=== PATIENT | male | born 1975 | race Native Hawaiian/Other Pacific Islander ===

== ENCOUNTER 2016-10-08 11:01 | Outpatient (CLI) | payer BC | END 2016-10-08 19:31 | disposition home or self-care (01) | LOC: RAD 11:01 | DX: M79.645 Pain in left finger(s) (principal) ==

== ENCOUNTER 2019-10-08 09:28 | Outpatient (CLI) | payer BC | END 2019-10-08 20:12 | disposition home or self-care (01) | LOC: RAD 09:28 | DX: M54.12 Radiculopathy, cervical region (principal) ==

== ENCOUNTER 2020-08-01 09:06 | Outpatient (CLI) | payer OTHER | END 2020-08-01 22:04 | disposition home or self-care (01) | LOC: LAB 09:06 | PROVIDERS: ATTEND Nurse Practitioner Family | DX: R50.9 Fever, unspecified (principal); R05 Cough; R06.02 Shortness of breath; R51.9 Headache, unspecified; Z11.59 Encounter for screening for other viral diseases | CPT/HCPCS: 87635; G2023; U0003 ==

== ENCOUNTER 2021-05-26 05:00 | Emergency (ER) | payer OTHER ==
[~2021-05-26] VITALS: Ht 172.7 cm; Wt 81.6 kg
[2021-05-26 06:09] LABS: POTASSIUM 3.9 mmol/L (3.6-5.2)
[2021-05-26 06:21] LABS: PLATELET COUNT 299 K/uL (142-355)
[2021-05-26 06:22] LABS: PARTIAL THROMBOPLASTIN TIME 23.3 SECONDS (24.5-33.6)
[2021-05-26 07:46] VITALS: BP 116/66; TEMP 98.4
== END 2021-05-26 07:48 | disposition home or self-care (01) ==
LOC: ED 05:00
PROVIDERS: Hospitalist
DX: J40 Bronchitis, not specified as acute or chronic (principal); F15.10 Other stimulant abuse, uncomplicated; F11.10 Opioid abuse, uncomplicated; F17.210 Nicotine dependence, cigarettes, uncomplicated
CPT/HCPCS: 36415; 80053; 80320; 82550; 83880; 84484; 85027; 85379; 85610; 85730; 93005; 96360; 96365; 96375; 99284; J0696; J3410

== ENCOUNTER 2021-06-02 01:41 | Emergency (ER) | payer OTHER ==
[~2021-06-02] VITALS: Ht 172.7 cm; Wt 81.6 kg
[2021-06-02 02:40] LABS: PLATELET COUNT 313 K/uL (142-355)
[2021-06-02 02:43] LABS: POTASSIUM 3.6 mmol/L (3.6-5.2)
[2021-06-02 04:20] VITALS: BP 138/82; TEMP 98.5
== END 2021-06-02 05:05 | disposition home or self-care (01) ==
LOC: ED 01:41
PROVIDERS: Emergency Medicine Emergency Medical Services
DX: I10 Essential (primary) hypertension (principal); J40 Bronchitis, not specified as acute or chronic; F19.10 Other psychoactive substance abuse, uncomplicated; F17.210 Nicotine dependence, cigarettes, uncomplicated
CPT/HCPCS: 36600; 80053; 80307; 80320; 81000; 82805; 83735; 84484; 85027; 85379; 93005; 96360; 96361; 96365; 96375; 99284; J0696; J3490

== ENCOUNTER 2021-06-17 21:12 | Emergency (ER) | payer OTHER ==
[~2021-06-17] VITALS: Ht 172.7 cm; Wt 72.6 kg
[2021-06-17 21:20] VITALS: BP 156/90; TEMP 99.4
== END 2021-06-17 22:23 | disposition still patient (30) ==
LOC: ED 21:12
DX: F41.0 Panic disorder [episodic paroxysmal anxiety] (principal); R07.89 Other chest pain; F15.11 Other stimulant abuse, in remission
CPT/HCPCS: 93005; 99283

== ENCOUNTER 2021-07-17 03:16 | Emergency (ER) | payer OTHER ==
[~2021-07-17] VITALS: Ht 172.7 cm; Wt 72.6 kg
[2021-07-17 04:13] LABS: PLATELET COUNT 300 K/uL (142-355)
[2021-07-17 04:48] LABS: POTASSIUM 3.7 mmol/L (3.6-5.2)
[2021-07-17 07:30] VITALS: BP 134/68; TEMP 98.3
== END 2021-07-17 18:20 | disposition other institution (70) ==
LOC: ED 03:16
PROVIDERS: Emergency Medicine
DX: F22 Delusional disorders (principal); F15.10 Other stimulant abuse, uncomplicated; R07.89 Other chest pain; Z11.52 Encounter for screening for COVID-19
CPT/HCPCS: 36415; 80053; 80307; 80320; 80329; 81000; 84484; 85027; 85379; 87635; 93005; 99285; U0003

== ENCOUNTER 2021-10-12 19:49 | Emergency (ER) | payer OTHER ==
[~2021-10-12] VITALS: Ht 172.7 cm; Wt 72.6 kg
== END 2021-10-12 20:05 | disposition still patient (30) ==
LOC: ED 19:49
DX: F20.0 Paranoid schizophrenia (principal); F15.10 Other stimulant abuse, uncomplicated; Z53.29 Procedure and treatment not carried out because of patient's decision for other reasons
CPT/HCPCS: 99281